=== PATIENT | female | born 1965 | race Caucasian/White ===

== ENCOUNTER 2019-11-19 15:14 | Emergency (ER) | payer OTHER ==
[~2019-11-19] VITALS: Ht 162.6 cm; Wt 89.8 kg
[2019-11-19 15:33] VITALS: BP 125/70
--- NOTE | 2019-11-19 18:56 | NUR ---
PT AMBULATED TO BED 6.
--- NOTE | 2019-11-19 19:26 | NUR ---
Dr. Currie examining patient.
--- NOTE | 2019-11-19 20:07 | NUR ---
PT TAKEN TO CT
--- NOTE | 2019-11-19 21:15 | NUR ---
PT MOVED TO BED 7
--- NOTE | 2019-11-19 21:30 | NUR ---
54/F PRESENTS TO ED WITH PARTNER, C/O R HIP PAIN X1 DAY. PT DENIES TRAUMA/INJURY. NO ABNORMALITY, DEFORMITY, ERYTHEMA OR BRUISING. PT AWAKE AND ALERT, SKIN NORMAL COLOR WARM AND DRY, RR EVEN AND UNLABORED, AMBULATORY WITH CANE HX DM, HLD, HTN, CHRONIC BRONCHITIS, GERD RX ALBUTEROL, ELLIPTA, FLUTICASONE, METFORMIN, LISINOPRIL, ATORVASTATIN, OMEPRAZOLE, FERROUS SULFATE
[2019-11-19 22:08] LABS: BASOPHILS % (AUTO) 0.7 % (0.0-2.0); EOSINOPHILS # (AUTO) 0.1 K/uL (0-0.4); EOSINOPHILS % (AUTO) 1.6 % (0.0-4.0); HEMATOCRIT 38.4 % (36-48); HEMOGLOBIN 12.4 g/dL (12.0-16.0); LYMPHOCYTES % (AUTO) 15.5 % (20.5-51.1); MEAN CORPUSCULAR HEMOGLOBIN 29 pg (27-31); MEAN CORPUSCULAR HGB CONC 32 g/dL (33-37); MEAN CORPUSCULAR VOLUME 89.4 fL (80-94); MONOCYTES # (AUTO) 0.5 K/uL (0.8-1.0); MONOCYTES % (AUTO) 8.3 % (1.7-9.3); NEUTROPHILS # (AUTO) 4.7 K/uL (1.8-7.7); NEUTROPHILS % (AUTO) 73.9 % (42.2-75.2); PLATELET COUNT (AUTO) 293 K/uL (140-450); RED CELL DISTRIBUTION WIDTH 14.4 % (11.6-13.7); WHITE BLOOD COUNT (AUTO) 6.3 K/uL (4.8-10.8)
[2019-11-19 22:40] LABS: ALBUMIN 3.7 g/dL (3.4-5.0); ANION GAP 14.6 (8-16); CREATININE 0.6 mg/dL (0.6-1.3); POTASSIUM 3.6 mmol/L (3.5-5.1); TOTAL BILIRUBIN 0.5 mg/dL (0.0-1.0)
[2019-11-19 22:48] LABS: APPEARANCE,URINE CLEAR (CLEAR); BILIRUBIN,URINE NEGATIVE (NEGATIVE); BLOOD, URINE NEGATIVE (NEGATIVE); COLOR,URINE YELLOW (YELLOW); LEUKOCYTE ESTERASE ,URINE NEGATIVE (NEGATIVE); NITRITE, URINE NEGATIVE (NEGATIVE); PH,URINE 6.5 (5.0-9.0); UGLUCOSE NEGATIVE (NEGATIVE)
[2019-11-19 23:07] VITALS: BP 157/83
== END 2019-11-19 23:03 | disposition home or self-care (01) ==
LOC: MED 15:14
DX: K59.00 Constipation, unspecified (principal); K80.20 Calculus of gallbladder without cholecystitis without obstruction; Z88.0 Allergy status to penicillin; Z88.2 Allergy status to sulfonamides; Z88.6 Allergy status to analgesic agent; Z88.5 Allergy status to narcotic agent; Z88.1 Allergy status to other antibiotic agents
CPT/HCPCS: 36415; 73502; 80053; 81003; 81025; 85025; 99284

== ENCOUNTER 2021-09-28 08:44 | Day surgery (SDC) | payer OTHER, SELFPAY ==
[2021-09-28] MEDS ORDERED: LIDOCAINE 2% 100 MG/5 ML UJET TP ONE (09:35)
[2021-09-28] MEDS ORDERED: fentaNYL citrate 0.05 MG/ML VIAL ONE (09:35)
[2021-09-28] MEDS ORDERED: diphenhydrAMINE 50 MG/ML VIAL ONE (09:35)
[2021-09-28] MEDS ORDERED: MIDAZOLAM 5 MG/5 ML VIAL ONE (09:35)
[2021-09-28] MEDS ORDERED: fentaNYL citrate 0.05 MG/ML VIAL IVP ONE (11:05)
[2021-09-28] MEDS ORDERED: MIDAZOLAM 2 MG/2 ML VIAL IVP ONE (11:05)
== END 2021-09-28 10:44 | disposition home or self-care (01) ==
LOC: MDS 08:44 → MMU 08:45 → MDS 10:44
PROVIDERS: ATTEND Internal Medicine Gastroenterology
DX: Z12.11 Encounter for screening for malignant neoplasm of colon (principal); K57.30 Diverticulosis of large intestine without perforation or abscess without bleeding; I10 Essential (primary) hypertension; E78.5 Hyperlipidemia, unspecified; E11.9 Type 2 diabetes mellitus without complications; Z90.49 Acquired absence of other specified parts of digestive tract; Z88.0 Allergy status to penicillin; Z88.1 Allergy status to other antibiotic agents; Z79.899 Other long term (current) drug therapy; Z20.822 Contact with and (suspected) exposure to COVID-19
CPT/HCPCS: 45385; 87426; 88305; J2250; J3010; J1200